=== PATIENT | female | born 1965 | race Two or more races ===

== ENCOUNTER 2020-02-10 13:49 | Emergency (ER) | payer OTHER ==
[~2020-02-10] VITALS: Ht 162.6 cm; Wt 80.7 kg
== END 2020-02-10 16:56 | disposition home or self-care (01) ==
LOC: ER 13:49
DX: G43.809 Other migraine, not intractable, without status migrainosus (principal); J32.8 Other chronic sinusitis; F41.8 Other specified anxiety disorders